=== PATIENT | female | born 1945 | race Caucasian/White ===

== ENCOUNTER → 2020-09-12 08:58 | Outpatient (CLI) | payer OTHER, SELFPAY ==
[2020-09-12 11:18] LABS: COVID19 -Nasal RAPID Negative (Negative)
== END ==
PROVIDERS: Visit Provider Student in an Organized Health Care Education/Training Program
DX: Z01.812 Encounter for preprocedural laboratory examination (principal); Z20.822 Contact with and (suspected) exposure to COVID-19
CPT/HCPCS: 87635

== ENCOUNTER 2020-09-14 07:26 | Day surgery (SDC) | payer OTHER, SELFPAY ==
--- NOTE | 2020-09-13 13:13 | PM.PREOP ---
Pre-operative Note COVID-19 COVID-19 status: Negative Interval Note History & Physical reviewed/Exam performed by Physician: Yes Changes to H&P: No
--- NOTE | 2020-09-14 07:06 | P.OP_ITS ---
Operative Date/Time/Diagnoses Date of procedure: 09/14/20 Time of procedure: 08:45 Procedure & Clinicians Procedure: Preoperative diagnoses: 1. Right significant Nuclear sclerotic cataract 2. Astigmatism which is to be corrected with a toric intraocular lens implant. 3. Polymyalgia might rheumatica and steroid dependent. 4. Pterygium nasal right eye. Postoperative diagnoses: 1. Right Cataract removal with phacoemulsification with toric posterior chamber intraocular lens implant placed. Procedure: Phacoemulsification with posterior chamber toric intraocular lens implant. Surgeon: Renee Kumar MD Complications: None Specimen: None Implant: [id number] axis 169 Blood loss: None Anesthesia: Retrobulbar with monitored standby Description of procedure: Patient presents with a complaint of decreased vision distance and near due to cataract which is affecting activities of daily living. She has had rapid change in cataract due to the use of oral prednisone for polymyalgia rheumatica. She continues on 20 mg a day The patient wants surgery to improve vision and astigmatism. She understands the extra risk of surgery during the COVID-19 epidemic and wishes to proceed. She has had a Zander and Zander vaccine and is tested COVID virus negative within 72 hours of procedure. The patient was taken to the operating room and proparacaine drops placed. Indelible ink salas were placed at the 90 and 180 degree meridian. The patient was placed on the operating room table and given IV sedation. A retrobulbar block insert consisting of 6 cc of 2% xylocaine without epinephrine mixed half and half with 0.5% Marcaine with 1 cc of hyaluronidase added is placed between the medial and lateral 1/3 of the inferior orbital rim. The eye is manually massaged for 30 sec, prepped using Betadine solution, and draped in the usual sterile fashion. Temporal approach was made, a 1 mm side-port incision was made 90? from the proposed corneal wound. Phenylephrine 1.5% mixed with 1% xylocaine 0.2 cc was placed into the anterior chamber. Viscoat followed by Yoseph was then placed. A 2.6 mm clear incision with a 2.6 mm blade was placed at the 170 degree meridian. A 360 degree capsulorrhexis style capsulotomy was then performed with a cyst itome needle on a Healon. Hydrodelineation and hydrodissection were performed. The phacoemulsification unit is introduced, and sculpting used to groove the central lens. It is then removed in chopping mode. Epi nucleus is removed with epinuclear mode and irrigation aspiration was used to remove the peripheral cortex. The posterior capsule is polished. The intraocular lens is selected, inspected, power confirmed, and placed in the posterior chamber at the desired meridian of 169?. The pupil was not constricted. The wound was stromally hydrated and tested for leaks, there was none and it was left sutureless. Vigamox 0.1 cc was placed into the anterior chamber. Kenalog 0.2 cc was placed in the superior subconjunctival space. A drop of antibiotic and was placed and the eye was patched and shielded. The patient was stable and returned to the recovery room in excellent condition. Dictated by: Renee Kumar MD Copy to: [facility] Same procedure as scheduled: Yes
[2020-09-14 07:46] VITALS: BP 151/83; PULSE 55; RESP 16; TEMP 36.4; O2SAT 99
[2020-09-14] MEDS: PROPARACAINE 0.5% OPHTH SOL 2 DROPS EYE-OP ×2 (07:56→08:54)
[2020-09-14] MEDS: CATARACT EYE COMPOUND (10 DROPS/SYRINGE) 3 DROPS EYE-OP (07:59)
[2020-09-14] MEDS: CHONDROIDTIN/SOD HYALURONATE 1.05 ML SYRINGE INTRAOCULA (09:11)
[2020-09-14] MEDS: HYALURONATE SODIUM 10 MG/ML SYRINGE INJ (09:13)
[2020-09-14] MEDS: ERYTHROMYCIN OPHTH 1 GM OINT 1 APPLIC EYE-RIGHT (09:13)
[2020-09-14] MEDS: MOXIFLOXACIN INJ 4 MG/0.8 ML VIAL 0.5 MG EYE-OP (09:13)
[2020-09-14] MEDS: TRIAMCINOLONE 50 MG/5 ML VIAL INJ (09:14)
[2020-09-14] MEDS: PHENYLEPHRINE/LIDOCAINE VIAL (OR) 0.2 ML EYE-OP (09:14)
[2020-09-14] MEDS: LIDOCAINE 2% 4 ML, BUPIVACAINE 0.5% (PF) 4 ML, HYALURONIDASE 150 UNIT INJ (09:15)
[2020-09-14] MEDS: BALANCED SALT IRRIG SOLN NO.2 500 ML, EPINEPHrine 1 MG IRR (09:15)
[2020-09-14 09:47] VITALS: BP 145/78; PULSE 47; RESP 18; TEMP 36.6; O2SAT 99
== END 2020-09-14 09:52 | disposition home or self-care (01) ==
LOC: OR 07:27
PROVIDERS: PCP Family Medicine; Referring Provider Ophthalmology; Visit Provider Ophthalmology
PROC: (CPT 66984; principal; 2020-09-14 08:45)
DX: H25.11 Age-related nuclear cataract, right eye (principal); H52.201 Unspecified astigmatism, right eye; M35.3 Polymyalgia rheumatica; H11.001 Unspecified pterygium of right eye
CPT/HCPCS: 66984; J0171; J3301; J3470; V2787

== ENCOUNTER → 2020-09-26 11:36 | Outpatient (CLI) | payer OTHER, SELFPAY ==
[2020-09-26 15:09] LABS: COVID19 -Nasal RAPID Negative (Negative)
== END ==
PROVIDERS: PCP Family Medicine; Visit Provider Physician Assistant
DX: Z01.812 Encounter for preprocedural laboratory examination (principal); Z20.822 Contact with and (suspected) exposure to COVID-19
CPT/HCPCS: 87635

== ENCOUNTER 2020-09-28 06:22 | Day surgery (SDC) | payer OTHER, SELFPAY ==
--- NOTE | 2020-09-27 16:58 | PM.PREOP ---
Pre-operative Note COVID-19 COVID-19 status: Negative Interval Note History & Physical reviewed/Exam performed by Physician: Yes Changes to H&P: No
--- NOTE | 2020-09-28 07:07 | P.OP_ITS ---
Operative Date/Time/Diagnoses Date of procedure: 09/28/20 Time of procedure: 07:45 Procedure & Clinicians Procedure: Preoperative diagnoses: 1. Left significant nuclear sclerotic and cortical cataract 2. Astigmatism which is to be corrected with a toric intraocular lens implant. 3. Polymyalgia rheumatica on oral prednisone of 20 mg a day. 4. Acid reflux Postoperative diagnoses: 1. Cataract removal with phacoemulsification with toric posterior chamber intraocular lens implant placed. Procedure: Phacoemulsification with posterior chamber toric intraocular lens implant. Surgeon: Renee Kumar MD Complications: None Specimen: None Implant: [id number] [place] 178 Blood loss: None Anesthesia: Retrobulbar with monitored standby Description of procedure: Patient presents with a complaint of decreased vision due to cataract which is affecting activities of daily living. She has had rapid increasing cataract causing decreased distance vision due to home oral prednisone use for polymyalgia rheumatica. The patient wants surgery to improve vision and astigmatism. She understands the extra risk of surgery during the COVID-19 epidemic and wishes to proceed. This is her 2nd eye. She is COVID negative for active viris prior to the procedure. The patient was taken to the operating room and proparacaine drops placed. Indelible ink salas were placed at the 90 and 180 degree meridian. The patient was placed on the operating room table and given IV sedation. A retrobulbar block insert consisting of 6 cc of 2% xylocaine without epinephrine mixed half and half with 0.5% Marcaine with 1 cc of hyaluronidase added is placed between the medial and lateral 1/3 of the inferior orbital rim. The eye is manually massaged for 30 sec, prepped using Betadine solution, and draped in the usual sterile fashion. Temporal approach was made, a 1 mm side-port incision was made 90? from the proposed corneal wound. Phenylephrine 1.5% mixed with 1% xylocaine 0.2 cc was placed into the anterior chamber. Viscoat followed by Yoseph was then placed. A 2.6 mm clear incision with a 2.6 mm blade was placed at the 170 degree meridian. A 360 degree capsulorrhexis style capsulotomy was then performed with a cystitome needle on a Healon. Hydrodelineation and hydrodissection were performed. The phacoemulsification unit is introduced, and sculpting used to groove the central lens. It is then removed in chopping mode. Epi nucleus is removed with epinuclear mode and irrigation aspiration was used to remove the peripheral cortex. The posterior capsule is polished. The intraocular lens is selected, inspected, power confirmed, and placed in the posterior chamber at the desired meridian of 178?. The pupil was not constricted. The wound was stromally hydrated and tested for leaks, there was none and it was left sutureless. Vigamox 0.1 cc was placed into the anterior chamber. Kenalog 0.2 cc was placed in the superior subconjunctival space. A drop of antibiotic and was placed and the eye was patched and shielded. The patient was stable and returned to the recovery room in excellent condition. Dictated by: Renee Kumar MD Copy to: [facility] Same procedure as scheduled: Yes
[2020-09-28 07:16] VITALS: BP 161/86; PULSE 58; RESP 15; TEMP 36.3; O2SAT 98; BMI 26.9
[2020-09-28] MEDS: PROPARACAINE 0.5% OPHTH SOL 2 DROPS EYE-OP (07:20)
[2020-09-28] MEDS: CATARACT EYE COMPOUND (10 DROPS/SYRINGE) 3 DROPS EYE-OP (07:30)
--- NOTE | 2020-09-28 08:04 | SUR.OPER ---
Supine on eye stretcher, head on extension cradle secured with tape. Arms tucked at sides with blanket. Pillow under knees.
[2020-09-28] MEDS: PHENYLEPHRINE/LIDOCAINE VIAL (OR) 0.2 ML EYE-OP (08:12)
[2020-09-28] MEDS: MOXIFLOXACIN INJ 4 MG/0.8 ML VIAL 0.5 MG EYE-OP (08:13)
[2020-09-28] MEDS: TRIAMCINOLONE 50 MG/5 ML VIAL INJ (08:14)
[2020-09-28] MEDS: LIDOCAINE 2% 4 ML, BUPIVACAINE 0.5% (PF) 4 ML, HYALURONIDASE 150 UNIT INJ (08:15)
[2020-09-28] MEDS: BALANCED SALT IRRIG SOLN NO.2 500 ML, EPINEPHrine 1 MG IRR (08:17)
[2020-09-28] MEDS: ERYTHROMYCIN OPHTH 1 GM OINT 1 APPLIC EYE-LEFT (08:19)
[2020-09-28 08:41] VITALS: BP 128/74; PULSE 54; RESP 14; TEMP 36.1; O2SAT 99
== END 2020-09-28 08:50 | disposition home or self-care (01) ==
LOC: OR 06:25
PROVIDERS: PCP Family Medicine; Referring Provider Family Medicine; Visit Provider Ophthalmology
PROC: (CPT 66984; principal; 2020-09-28 07:45)
DX: H25.812 Combined forms of age-related cataract, left eye (principal); H52.202 Unspecified astigmatism, left eye; M35.3 Polymyalgia rheumatica; K21.9 Gastro-esophageal reflux disease without esophagitis
CPT/HCPCS: 66984; J0171; J2704; J3301; J3470; V2787